=== PATIENT | female | born 1945 | race Caucasian/White ===

== ENCOUNTER 2017-07-09 13:52 | Emergency (ER) | payer OTHER ==
[~2017-07-09] VITALS: Ht 172.7 cm; Wt 82.3 kg
[2017-07-09] MEDS ORDERED: MOTRIN600 MG PO (15:27)
[2017-07-09] MEDS ORDERED: FLEXERIL10 MG PO (15:27)
[2017-07-09 15:39] VITALS: BP 145/72
== END 2017-07-09 16:04 | disposition home or self-care (01) ==
LOC: EME 13:52
PROC: 3E0234Z Introduction of Serum, Toxoid and Vaccine into Muscle, Percutaneous Approach (ICD-10-PCS; principal; 2017-07-09)
DX: S13.9XXA Sprain of joints and ligaments of unspecified parts of neck, initial encounter (principal); S23.41XA Sprain of ribs, initial encounter; S60.417A Abrasion of left little finger, initial encounter; S00.81XA Abrasion of other part of head, initial encounter; V47.0XXA Car driver injured in collision with fixed or stationary object in nontraffic accident, initial encounter; Z23 Encounter for immunization; Y92.410 Unspecified street and highway as the place of occurrence of the external cause; F90.9 Attention-deficit hyperactivity disorder, unspecified type
CPT/HCPCS: 71020; 72040; 99281; 99285